=== PATIENT | female | born 1955 | race Caucasian/White ===

== ENCOUNTER 2021-09-15 16:33 | Emergency (ER) | payer OTHER ==
[~2021-09-15] VITALS: Ht 162.6 cm; Wt 93.9 kg
[2021-09-15] MEDS ORDERED: METOCLOPRAMIDE HCL 10 MG/2 ML VIAL IV ONE (16:45)
[2021-09-15] MEDS ORDERED: MAGNESIUM SULFATE 2 GM in IV DEXTROSE 5% 100 ML IV ONE (16:45)
[2021-09-15] MEDS ORDERED: IV NORMAL SALINE 500 ML BAG IV ONE ×2 (16:45→18:00)
[2021-09-15] MEDS ORDERED: ACETAMINOPHEN 325 MG TABLET PO ONE (16:45)
[2021-09-15] MEDS ORDERED: MAGNESIUM SULFATE/D5W 200 ML ONE (16:57)
[2021-09-15] MEDS ORDERED: METOCLOPRAMIDE HCL 10 MG/2 ML VIAL ONE (16:58)
[2021-09-15] MEDS ORDERED: ACETAMINOPHEN 325 MG TABLET ONE (16:59)
[2021-09-15] MEDS ORDERED: KETOROLAC TROMETHAMINE 15 MG INJ ONE (17:12)
[2021-09-15] MEDS ORDERED: KETOROLAC TROMETHAMINE 15 MG INJ IVP ONE (17:15)
[2021-09-15 17:31] LABS: HEMATOCRIT 49.4 % (31.2-41.9); MEAN CORPUSCULAR HEMOGLOBIN 29.1 uug (24.7-32.8); MEAN CORPUSCULAR VOLUME 87.4 fL (75.5-95.3); PLATELET COUNT (AUTO) 240 K/uL (179-408)
--- NOTE | 2021-09-15 17:35 | NUR ---
PT IS IN THE ROOM #2B. DR ANNA EVALUATED THE PT.
[2021-09-15 17:37] LABS: *BILIRUBIN,URIN NEGATIVE (NEGATIVE); *BLOOD, URINE 3+ (NEGATIVE); *CLARITY,URINE SLIGHTLY CLOUDY (CLEAR); *COLOR,URINE LIGHT YELLOW (YELLOW); *KETONES,URINE NEGATIVE (NEGATIVE); *UROBILINOGEN,URINE 0.2 E.U./dl (NORMAL); LEUKOCYTE ESTERASE ,URINE 3+ (NEGATIVE); NITRITE, URINE POSITIVE (NEGATIVE); UGLUCOSE NEGATIVE (NEGATIVE)
[2021-09-15 17:51] LABS: *AMPHETAMINE, URINE POSITIVE (NEGATIVE); *CANNABINOID, URINE POSITIVE (NEGATIVE); *COCCAINE, URINE NEGATIVE (NEGATIVE); *OPIATE, URINE NEGATIVE (NEGATIVE); *PHENCYCLIDINE SCREEN,URINE NEGATIVE (NEGATIVE)
[2021-09-15 17:54] LABS: BILIRUBIN,TOTAL 0.3 mg/dL (0.2-1.0); CREATININE 1.2 mg/dL (0.6-1.3)
[2021-09-15] MEDS ORDERED: CEFTRIAXONE 1 G in IV DEXTROSE 5% 50 ML IV ONE ×2 (18:00→22:30)
[2021-09-15] MEDS ORDERED: SWABABLE VALVE TRANSFER SET EA MC ONE (18:07)
[2021-09-15] MEDS ORDERED: IOHEXOL 350 100 ML INFUS..BTL ONE (18:07)
[2021-09-15] MEDS ORDERED: NITR100C6 PO (18:23)
[2021-09-15 18:32] LABS: BACTERIA,URINE MODERATE /HPF (NONE SEEN); WBC,URINE 20-50 /HPF (0-3)
[2021-09-15 18:33] LABS: SQUAMOUS EPITHELIAL CELL,UR FEW /HPF (NONE SEEN)
--- NOTE | 2021-09-15 19:10 | NUR ---
received patient lethargic , responds to simple command , on 2l nc , iv 18 ga lac ns running bolus and magnesium just finished , incontinent
[2021-09-15] MEDS ORDERED: IPRATROPIUM BROMIDE 0.5 MG/2.5 ML NEBU NEB ONE (21:00)
[2021-09-15] MEDS ORDERED: ALBUTEROL SULFATE 2.5 MG/ 0.5 ML NEBU NEB ONE (21:00)
[2021-09-15] MEDS ORDERED: ALBUTEROL SULFATE 2.5 MG/3 ML NEBU ONE (21:06)
[2021-09-15] MEDS ORDERED: IPRATROPIUM BROMIDE 0.5 MG/2.5 ML NEBU ONE (21:06)
[2021-09-15] MEDS ORDERED: MORPHINE SULFATE 4 MG/1 ML DISP.SYRIN ONE (22:08)
[2021-09-15] MEDS ORDERED: LIDOCAINE HCL 2% 20 ML VIAL ONE (22:11)
--- NOTE | 2021-09-15 22:15 | NUR ---
assisted md for lumbar punture , failed attempt , patient was placed back to lying p[ostion , vs stable , responsive , on 2l nc , 6/ 10 pain after morphine ivp , no bleeding on site
[2021-09-15] MEDS ORDERED: VANCOMYCIN 1G/D5W 200 ML PIGGYBACK IV ONE (22:30)
--- NOTE | 2021-09-15 22:45 | NUR ---
maori 18 garcia catheter inserted , urineis cloudy and tea colored , urine culture was sent
[2021-09-15] MEDS ORDERED: MORPHINE SULFATE 4 MG/1 ML DISP.SYRIN IV ONE (23:00)
--- NOTE | 2021-09-15 23:00 | NUR ---
dr valdes spoke to represntative of regal
[2021-09-15] MEDS ORDERED: CEFTRIAXONE 1 G VIAL ONE (23:42)
[2021-09-15] MEDS ORDERED: VANCOMYCIN IV 200 ML ONE (23:42)
--- NOTE | 2021-09-16 00:19 | NUR ---
sleeping comfortablt ,arousable to light touch
[2021-09-16] MEDS ORDERED: IV NORMAL SALINE 500 ML BAG IV ONE (03:00)
--- NOTE | 2021-09-16 03:44 | NUR ---
October from [facility] called back with transfer info. Patient is accepted at [facility] room 312A. Accepted MD is Dr Phillips. Call for report is [phone].
--- NOTE | 2021-09-16 04:01 | NUR ---
October from [facility] called back with an ETA pick of 20mins by [facility] ambulance.
--- NOTE | 2021-09-16 04:12 | NUR ---
Gave SBAR to Hetal donovan from [facility].
--- NOTE | 2021-09-16 04:26 | NUR ---
Gave SBAR report to [facility] ambulance unit [id number]
== END 2021-09-16 04:49 | disposition short-term general hospital (02) ==
LOC: ER 16:35 → EDBD 16:35 → ER 09-16 04:49
DX: R51.9 Headache, unspecified (principal); F15.10 Other stimulant abuse, uncomplicated; R00.0 Tachycardia, unspecified; Z86.73 Personal history of transient ischemic attack (TIA), and cerebral infarction without residual deficits; I10 Essential (primary) hypertension; Z79.899 Other long term (current) drug therapy; R06.83 Snoring; F17.200 Nicotine dependence, unspecified, uncomplicated; N39.0 Urinary tract infection, site not specified
CPT/HCPCS: 36415; 70450; 70496; 71045; 80053; 80307; 81001; 85025; 85610; 87040 ×2; 87086; 87426; 93005; 94640; 96365; 96366 ×2; 96367; 96368; 96375; 99285; J0696 ×3; J1885; J2270; J2765; J3370; J3475; J3490; J7060 ×2; Q9967; A4663; J3590